=== PATIENT | male | born 1970 | race Caucasian/White ===

== ENCOUNTER 2018-02-27 16:31 | Emergency (ER) | payer SELFPAY ==
[2018-02-27 16:46] VITALS: BP 122/85
--- NOTE | 2018-02-27 17:05 | ED Physician Documentation ---
General Adult - HISTORIAN Historian: patient - HPI Stated Complaint: finger injury Chief Complaint: General Adult Onset: days ago Timing: still present Severity: moderate Further Comments: yes (Pt is a 47 yo prisoner with an infection in the fleshy pad of the distal R index finger. Pt states problem started 2 weeks ago when he stuck his finger while gardening. Two days later he was seen at an ER in [place] and "was given a shot." Infection worsened and pt was seen again 2 days later and was started on Keflex, but pt took only one dose. (Pt was not a prisoner at that time.) Infection has worsened. No fever, n/v. Tetanus is utd.) - ROS CONST: no problems EYES/ENT: none CVS/RESP: none GI/: none MS/SKIN/LYMPH: other (finger infection) - PAST HX Past History: other (drug abuse) Other History: none Surgeries/Procedures: other (ortho surgery) Allergies/Adverse Reactions: Allergies Allergy/AdvReac Type Severity Reaction Status Date / Time No Known Allergies Allergy Unverified 02/27/18 16:50 Home Medications: Ambulatory Orders Medication Instructions Recorded NK 02/27/18 - SOCIAL HX Smoking History: cigarettes Drug Use: methamphetamines - FAMILY HX Family History: No - VITAL SIGNS Vital Signs: Vital Signs Temp Pulse Resp BP Pulse Ox 97.4 F L 81 16 122/85 100 02/27/18 16:31 02/27/18 16:31 02/27/18 16:31 02/27/18 16:31 02/27/18 16:31 - REVIEWED ASSESSMENTS Nursing Assessment Reviewed: Yes Vitals Reviewed: Yes Procedures Blade Size: 11 I & D Procedure: betadine prep, Chlorhexidine Progress: Digital block with 1% lidocaine, 6 cc abscess, distal L index finger tip, lanced and approx 2 cc pus expressed Bactroban applied Progress - Progress Progress: X-ray R index finger: Three views of the right 2nd digit demonstrate soft tissue swelling at the distal tuft. However is no focal bony erosions are noted to suggest osteomyelitis. No osseous abnormalities are noted. Impression: Soft tissue swelling of the distal tuft of the right 2nd digit. No evidence for osteomyelitis. Rx Doxycycline 100 mg. Take one every 12 hours for 10 days. Refill if not completely healed after 10 days. 1st dose in ER. Rx Bactroban (mupirocin) topical antibiotic. Apply to affected area three times daily for 10 days. 1st application in ER. Keep wound covered except for changing dressing or applying antibiotic. ED Results Lab/Radiology - Orders Orders: ED Orders Category Date Time Status XRAY INDEX FINGER [FINGER 2 VIEWS OR MORE] [RAD] Stat Exams 02/27/18 Ordered General Adult Physical Exam - PHYSICAL EXAM GENERAL APPEARANCE: mild distress EENT: pharynx normal NECK: normal inspection, supple RESPIRATORY: no resp distress, chest non-tender, breath sounds normal CVS: reg rate & rhythm, heart sounds normal BACK: normal inspection, no CVA tenderness SKIN: other (Abscess in ventral distal L index finger pad, floculant w pus ) EXTREMITIES: normal range of motion, no evidence of injury, other (Abscess in ventral distal L index finger pad, floculant w pus ) NEURO: oriented X3, motor nml, sensation nml Discharge Clincal Impression: abscess L index finger Referrals: Primary Doctor,No [Primary Care Provider] - Condition: Stable Disposition: 01 HOME, SELF-CARE Decision to Admit: NO Decision Time: 19:26
[2018-02-27] MEDS ORDERED: DOXYCYCLINE MONOHYDRATE 100 MG CAPSULE PO ONE (17:22)
[2018-02-27] MEDS ORDERED: Lidocaine 1% 5ml(IM or SUTURE)(PAIN CLINIC) IJ ONE (17:23)
[2018-02-27] MEDS ORDERED: MUPIROCIN 2% OINT 22GM TUBE TP ONE (18:06)
--- NOTE | 2018-02-27 18:50 | Diagnostic Imaging Report ---
CELY CUADRA [facility] [id number] [facility].[address] [address] Report Submission Date: Feb 27, 2018 5:18:40 PM CDT Patient Study Name: MADINA GONSALVES Date: Feb 27, 2018 4:47:42 PM CDT Modality Type: DX Gender: M Description: UPPER EXTREMITY : 68 Institution: [facility] Physician: CELY CUADRA Right 2nd digit History: Untreated finger infection. Evaluate for osteomyelitis Three views of the right 2nd digit demonstrate soft tissue swelling at the distal tuft. However is no focal bony erosions are noted to suggest osteomyelitis. No osseous abnormalities are noted. Impression: Soft tissue swelling of the distal tuft of the right 2nd digit. No evidence for osteomyelitis. Electronically signed on Feb 27, 2018 5:18:40 PM CDT by: Alexia MYRICK
== END 2018-02-27 18:45 | disposition home or self-care (01) ==
LOC: ED 16:31
DX: L02.511 Cutaneous abscess of right hand (principal)
CPT/HCPCS: 10060; 73140

== ENCOUNTER 2018-03-04 18:13 | Emergency (ER) | payer MEDICARE ==
--- NOTE | 2018-03-04 18:18 | ED Physician Documentation ---
General Adult - HISTORIAN Historian: patient - HPI Stated Complaint: fatigue and sweating Chief Complaint: General Adult Onset: hours (1) Timing: still present Severity: mild Further Comments: yes (per staff at the halfway he started to sweat and he had fatigue. He states that he is shaking and he has had sweating. He is worried he is having a seizure although he denies any loss of control of bowel or bladder. No fever. Last drug use meth Friday before being arrested.) Last known Well Code/Unknown Code: Unknown - ROS CONST: no problems EYES/ENT: none CVS/RESP: none GI/: none MS/SKIN/LYMPH: denies: rash NEURO/PSYCH: denies: dizziness - PAST HX Past History: other Allergies/Adverse Reactions: Allergies Allergy/AdvReac Type Severity Reaction Status Date / Time No Known Allergies Allergy Verified 03/04/18 19:08 Home Medications: Ambulatory Orders Medication Instructions Recorded Acetaminophen [Tylenol Extra 1,000 mg PO BID 03/04/18 Strength] Cephalexin [Keflex] 1,000 mg PO BID 03/04/18 Hydroxyzine HCl 50 mg PO PRN PRN 03/04/18 - SOCIAL HX Smoking History: non-smoker Alcohol Use: occasionally Drug Use: methamphetamines - FAMILY HX Family History: No - VITAL SIGNS Vital Signs: Vital Signs Temp Pulse Resp BP Pulse Ox 122/85 02/27/18 19:05 - REVIEWED ASSESSMENTS Nursing Assessment Reviewed: Yes Vitals Reviewed: Yes Progress - Progress Progress: 1950: discussed results thus far. Awaiting lab. No further complaints DG 2039: awaiting lab results no further diaphoresis no further complaints resting quietly DG General Adult Physical Exam - PHYSICAL EXAM GENERAL APPEARANCE: no distress EENT: eye inspection normal NECK: normal inspection RESPIRATORY: no resp distress, chest non-tender, breath sounds normal CVS: reg rate & rhythm, heart sounds normal ABDOMEN: soft, normal bowel sounds, no distension EXTREMITIES: non-tender, normal range of motion, no evidence of injury, no edema NEURO: oriented X3, CN's nml as tested, other (he is shaking upper body as he is talking ) Discharge Clincal Impression: Diaphoresis Referrals: Primary Doctor,No [Primary Care Provider] - 2 Days Comments: 1. Continue meds 2. Follow up with PCP 3. Return to ER for any concerns Condition: Stable Disposition: 01 HOME, SELF-CARE Decision to Admit: NO Date of Decison to Admit: 03/04/18 Decision Time: 20:58
[2018-03-04 19:05] LABS: eGFR (Non-African) > 60
[2018-03-04] MEDS ORDERED: 0.9 % SODIUM CHLORIDE 1,000 ML IV ONE (19:33)
[2018-03-04] MEDS ORDERED: LORazepam 2 MG/ML VIAL IVP ONE (19:38)
[2018-03-04 20:51] LABS: BASO % 0.5 % (0.0-1.5); EOS % 2.5 % (0.0-6.8); LYMPH ABS # 2.17 thou/uL (0.60-4.00); MCH. 32.2 pg (28.0-34.0); MCV 96.3 fL (80.0-100.0); MONOCYTE % 8.1 % (0.0-11.0); MONOCYTE ABS # 0.52 thou/uL (0.00-0.90); PLATELET COUNT 258 thou/uL (130-400)
[2018-03-04 21:02] VITALS: BP 116/74
[2018-03-05 06:57] LABS: APPEARANCE,URINE CLEAR (CLEAR); CANNABINOIDS NEGATIVE ng/mL (< 50); COLOR,URINE AMBER (YELLOW); METHYLENEDIOXYMETHAMPHETAMINE NEGATIVE ng/mL (<500); OCCULT BLOOD,URINE NEGATIVE (NEGATIVE)
== END 2018-03-04 21:10 | disposition home or self-care (01) ==
LOC: ED 18:13
DX: R61 Generalized hyperhidrosis (principal)
CPT/HCPCS: 80053; 81002; 82553; 84484; 85025; 86140; 93005; G0480; G0481; J2060; J7030; 80320; 80377; 96365; 96375; 99284; S1016